=== PATIENT | male | born 1995 | race Caucasian/White ===

== ENCOUNTER 2019-02-16 10:57 | Observation (INO) | payer OTHER ==
[2019-02-16] MEDS ORDERED: NAPROSYN 2250 MG/TAB PO (11:57)
[2019-02-16] MEDS ORDERED: FLOMAX 0.40.4 MG/CAP PO (11:57)
--- NOTE | 2019-02-16 12:37 | NUR ---
Patient to room 350 via cart per EMS/[facility]. Patient drowsy, multiple attempts to remain awake during initial assessment noted, continually doses off. Will awaken abruptly and cup scrotum, hollering and moaning, then immediately returns to sleep. During awaken state, requests Dilaudid to be given for pain, educated patient on narcotic side affects. See assessment. Dr Danielle notified of patient arrival and current state. No other c/o at this time. Patient last oral intake was 1800 on 02/15/19.
[2019-02-16 13:06] VITALS: BP 96/60; PULSE 55; TEMP 97.8
--- NOTE | 2019-02-16 15:07 | NUR ---
Dr Danielle here to see patient. Patient to surgery at this time.
[2019-02-16 16:10] VITALS: BP 125/77; PULSE 60; TEMP 98.1
--- NOTE | 2019-02-16 16:10 | NUR ---
Patient returns from PACU, assessment unchanged. Requests food and discharge.
[2019-02-16 16:25] VITALS: BP 120/74; PULSE 61
[2019-02-16 16:40] VITALS: BP 124/75; PULSE 66; TEMP 98.1
--- NOTE | 2019-02-16 18:02 | NUR ---
Discharge instructions reviewed with patient and spouse, verbalized understanding. Discharged ambulatory to auto/home with spouse at [id number]. Discharge criteria met.
== END 2019-02-16 16:35 | disposition home or self-care (01) ==
LOC: SURG 11:42
PROVIDERS: ADMIT Urology
DX: N20.1 Calculus of ureter (principal)
CPT/HCPCS: C1769; C2617; J0690; J1100; J1885; J2250; J2405; J2704; J2765; J3010; J7030; Q9967

== ENCOUNTER 2020-11-09 21:23 | Emergency (ER) | payer OTHER ==
[~2020-11-09] VITALS: Ht 193 cm; Wt 84.1 kg
[~2020-11-09 21:23] MED LIST: FLOMAX 0.40.4 MG/CAP PO; NAPROSYN 2250 MG/TAB PO; NEURONTIN100 MG/CAP PO
[2020-11-09 21:27] VITALS: TEMP 97
[2020-11-09 21:56] LABS: BASO # 0.1 (0.0-0.2); BASO % 0.4 % (0.0-2.0); EOS # 0.3 (0.0-0.7); EOS % 2.3 % (0-4.0); GRAN # 10.6 (1.4-6.5); GRAN % 72.3 % (42.2-75.2); HEMATOCRIT 43.3 % (42.0-52.0); HEMOGLOBIN 15.3 g/dl (13.5-18.0); LYMPH # 2.2 (1.2-3.4); LYMPH % 15.1 % (20.0-51.0); MEAN CELL VOLUME 89 fl (80.0-100.0); MEAN CORPUSCULAR HEMOGLOBIN 32 pg (27.0-31.0); MEAN CORPUSCULAR HGB CONC 35 g/dl (33.0-37.0); MEAN PLATELET VOLUME 9.5 fl (7.4-10.4); MONO # 1.4 (0.1-0.6); MONO % 9.6 % (1.7-9.3); PLATELET COUNT 252 K/mm3 (130-400); RED BLOOD COUNT 4.86 M/mm3 (4.20-5.60); REDCELL DISTRIBUTION WIDTH-CV 12.9 % (11.5-14.5)
[2020-11-09 22:21] LABS: ALBUMIN 4.4 gm/dL (3.5-5.0); BILIRUBIN,TOTAL 0.6 mg/dL (0.0-1.0); CALCIUM 9.7 mg/dL (8.4-10.2); CREATININE, serum 0.97 (0.66-1.25); TOTAL PROTEIN 7.4 gm/dL (6.4-8.2)
[2020-11-09 23:36] VITALS: BP 146/70; PULSE 76
== END 2020-11-09 23:36 | disposition home or self-care (01) ==
LOC: COL.ER 21:23
PROVIDERS: Student in an Organized Health Care Education/Training Program
DX: L05.01 Pilonidal cyst with abscess (principal)
CPT/HCPCS: J2270; J2405; J7030